=== PATIENT | male | born 1960 | race African-American/Black ===

== ENCOUNTER 2023-06-23 13:14 | Emergency (ER) | payer MEDICARE, MEDICAID ==
[~2023-06-23] VITALS: Ht 190.5 cm; Wt 125.2 kg
[2023-06-23 13:41] VITALS: PULSE 76; RESP 18; TEMP 98.3; O2SAT 98
[2023-06-23 15:24] LABS: BASOPHILS % (AUTO) 0.4 % (0.0-2.0); EOSINOPHILS # (AUTO) 0.1 K/uL (0.0-0.4); HEMATOCRIT 33.1 % (36-54); HEMOGLOBIN 10.8 g/dL (14.0-18.0); LYMPHOCYTES # (AUTO) 1.1 K/uL (1.0-5.5); LYMPHOCYTES % (AUTO) 11.7 % (20.5-51.5); MEAN CORPUSCULAR HEMOGLOBIN 30 pg (27-31); MEAN CORPUSCULAR HGB CONC 33 % (32-36); MEAN CORPUSCULAR VOLUME 91 fL (79.0-98.0); MONOCYTES # (AUTO) 0.7 K/uL (0.0-1.0); MONOCYTES % (AUTO) 7.6 % (1.7-9.3); NEUTROPHILS # (AUTO) 7.6 K/uL (1.8-7.7); NEUTROPHILS % (AUTO) 79.3 % (40.0-70.0); PLATELET COUNT (AUTO) 287 K/uL (130-430); RED BLOOD CELL COUNT(AUTO) 3.63 MIL/uL (4.2-6.2); RED CELL DISTRIBUTION WIDTH 14.4 % (9.0-15.0); WHITE BLOOD COUNT (AUTO) 9.6 K/uL (4.8-10.8)
[2023-06-23] MEDS: DIPHTH,PERTUSS(ACELL),TET VAC 0.5 ML VIAL (Tdap) I.M. ONE (15:25)
[2023-06-23 15:40] LABS: PROTHROMBIN TIME 10.4 SECS (9.5-12.5)
[2023-06-23 15:45] LABS: ANION GAP 10 (5-15); CALCIUM 9.9 mg/dL (8.4-11.0); CARBON DIOXIDE 27 mmol/L (23-29); CHLORIDE 113 mmol/L (98-107); CREATININE 3.74 mg/dL (0.55-1.30); GFR AFRICAN AMERICAN 21 mL/min (>90); GLUCOSE 145 mg/dL (74-106); POTASSIUM 5.2 mmol/L (3.5-5.1); SODIUM SERUM 150 mmol/L (136-145); UREA NITROGEN, BLOOD 43 mg/dL (8-21)
[2023-06-23 15:47] LABS: GFR NON AFRICAN-AMERICAN 18 mL/min (>90)
[2023-06-23 15:48] LABS: ALCOHOL, BLOOD < 3 mg/dL (<10)
[2023-06-23 16:34] LABS: BILIRUBIN,URINE NEGATIVE (NEGATIVE); CLARITY/URINE CLEAR (CLEAR); COLOR,URINE YELLOW (YELLOW); GLUCOSE,URINE NEGATIVE (NEGATIVE); KETONES,URINE NEGATIVE (NEGATIVE); LEUKOCYTE ESTERASE ,URINE NEGATIVE (NEGATIVE); NITRITE, URINE NEGATIVE (NEGATIVE); PROTEIN URINE 2+ (NEGATIVE); UROBILINOGEN,URINE 0.2 (0.2-1.0)
[2023-06-23 16:40] LABS: BLOOD, URINE TRACE (NEGATIVE)
[2023-06-23 16:56] LABS: BARBITURATE, URINE NEGATIVE (NEG <=200); BENZODIAZEPINE, URINE NEGATIVE (NEG <=150); CANNABINOID, URINE NEGATIVE (NEG <=50); COCAINE, URINE NEGATIVE (NEG <=150); METHAMPHETAMINES SCREEN,URINE NEGATIVE (NEG <=500); OPIATE, URINE NEGATIVE (NEG <=100); PHENCYCLIDINE SCREEN,URINE NEGATIVE (NEG <=25); UR TRICYCLIC ANTIDEPRESSANTS NEGATIVE (NEG <=300); URINE AMPHETAMINE NEGATIVE (NEG <=500); URINE METHADONE NEGATIVE (NEG <=200); URINE OXYCODONE SCREEN NEGATIVE (NEG <=100)
[2023-06-23] MEDS ORDERED: LOSA50TA28 PO (17:10)
[2023-06-23] MEDS ORDERED: ALLO300T2 PO (17:10)
[2023-06-23] MEDS ORDERED: SSNPH SUBCUT (17:10)
[2023-06-23] MEDS ORDERED: INSU100V SUBCUT (17:10)
[2023-06-23] MEDS ORDERED: LABE100T8 PO (17:10)
[2023-06-23] MEDS ORDERED: CALC0.253 PO (17:10)
[2023-06-23] MEDS ORDERED: FINA5TAB11 PO (17:10)
[2023-06-23] MEDS ORDERED: ATOR20TA64 PO (17:10)
[2023-06-23] MEDS ORDERED: CITA10TA14 PO (17:10)
[2023-06-23] MEDS ORDERED: AMLO5TAB92 PO (17:10)
[2023-06-23] MEDS ORDERED: FURO20TA4 PO (17:10)
[2023-06-23] MEDS ORDERED: TAMS0.4C96 PO (17:10)
[2023-06-23 17:16] LABS: BACTERIA,URINE RARE /HPF (None Seen); WBC,URINE 0-3 /HPF (0-3)
[2023-06-23] MEDS: ceFAZolin SODIUM 1 GM VIAL IM ONE (17:49)
[2023-06-23] MEDS: SODIUM ZIRCONIUM CYCLOSILICATE 10 GM POWD.PACK PO ONE (17:49)
[2023-06-23] MEDS: hydrALAZINE HCL 20 MG/ML VIAL IVP ONE ×2 (18:25→18:55)
[2023-06-23 19:20] VITALS: BP_SYST 151; PULSE 93; RESP 21; TEMP 97.5; O2SAT 97
== END 2023-06-23 19:20 | disposition short-term general hospital (02) ==
LOC: SED 13:14
DX: S01.511A Laceration without foreign body of lip, initial encounter (principal); R55 Syncope and collapse; N17.9 Acute kidney failure, unspecified; E87.0 Hyperosmolality and hypernatremia; E87.5 Hyperkalemia; D64.9 Anemia, unspecified; I10 Essential (primary) hypertension; E11.9 Type 2 diabetes mellitus without complications; Z91.010 Allergy to peanuts; Z79.4 Long term (current) use of insulin; W18.2XXA Fall in (into) shower or empty bathtub, initial encounter; Y93.89 Activity, other specified; Y92.89 Other specified places as the place of occurrence of the external cause; Y99.8 Other external cause status
CPT/HCPCS: 99285; 70450; 96374; 71045; 80307; 80048; 85025; 85610; 85730; 87040; 84484; 36415; 72125; 90715; 96376; 96372; 82948; 90471; 12011; 81000; 81001; 93005; 81015; G0482; J0690; J0360